=== PATIENT | female | born 1960 | race Caucasian/White ===

== ENCOUNTER 2023-04-24 10:48 | Outpatient (CLI) | payer OTHER, SELFPAY | END 2023-04-24 10:49 | disposition home or self-care (01) | PROVIDERS: Visit Provider Nurse Practitioner Family | DX: R35.0 Frequency of micturition (principal); R32 Unspecified urinary incontinence | CPT/HCPCS: 81015; 87086 ==

== ENCOUNTER 2023-05-01 11:02 | Outpatient (CLI) | payer OTHER, SELFPAY | END 2023-05-01 11:03 | disposition home or self-care (01) | PROVIDERS: Visit Provider Nurse Practitioner Family | DX: Z00.00 Encounter for general adult medical examination without abnormal findings (principal); Z13.1 Encounter for screening for diabetes mellitus; Z13.0 Encounter for screening for diseases of the blood and blood-forming organs and certain disorders involving the immune mechanism; Z13.6 Encounter for screening for cardiovascular disorders; Z12.4 Encounter for screening for malignant neoplasm of cervix | CPT/HCPCS: 80061; 82947; 85025 ==

== ENCOUNTER 2024-08-08 12:47 | Outpatient (CLI) | payer OTHER, SELFPAY ==
--- NOTE | 2024-08-08 13:00 | CRLHL7_ITS ---
For Patients: As a result of the Century Cures Act, medical imaging exams and procedure reports are released immediately into your electronic medical record. You may view this report before your referring provider. If you have questions, please contact your health care provider. BILATERAL SCREENING MAMMOGRAM WITH COMPUTER-AIDED DETECTION AND TOMOSYNTHESIS TECHNIQUE: CC and MLO views were obtained. These mammographic images have been obtained using full-field digital technique. These mammographic images were interpreted with the benefit of computer-aided detection. Breast Tomosynthesis was used in this interpretation. COMPARISON FILM: 03/23/22, 12/25/17, 10/15/12. FINDINGS: The breasts are heterogeneously dense, which may obscure small masses. IMPRESSION: There is no radiographic evidence for malignancy. ASSESSMENT: BI-RADS Category 1: Negative RECOMMENDATION: Routine screening mammogram in 1 year. A lay language report of this examination will be provided to the patient. Avelino Mendoza M.D. Diagnostic Radiologist [email or web address] SP/Dictated by: Avelino Mendoza MD @ 08/11/2024 10:16:00 AM (Electronically Signed)
== END 2024-08-08 12:48 | disposition home or self-care (01) ==
LOC: MAMMO 12:48
PROVIDERS: Visit Provider Nurse Practitioner Family
DX: Z12.31 Encounter for screening mammogram for malignant neoplasm of breast (principal); R92.333 Mammographic heterogeneous density, bilateral breasts
CPT/HCPCS: 77063; 77067